=== PATIENT | female | born 1950 | race Caucasian/White ===

== ENCOUNTER → 2020-07-14 12:26 | Outpatient (CLI) | payer SELFPAY, OTHER ==
--- NOTE | 2020-07-14 12:28 | CT_ITS ---
STUDY: CT SCAN OF LOWER EXTREMITY LEFT REASON FOR EXAM: Female, 70 years old. Left knee isai plasty planning, anterior medial pain x 5 months, denies injury. RADIATION DOSAGE (If Supplied By Facility): CTDIvol = ( 18.86 ) mGy, DLP = ( 1149.65 ) mGycm. Individualized dose optimization techniques were used for this CT.? TECHNIQUE: Multiple axial tomographic images of the left hip joint, left knee joint and left ankle joint were obtained. Coronal and sagittal reconstruction was obtained as well. COMPARISON: None. FINDINGS: Imaging of the hip joint demonstrates mild prominence of the greater trochanter of the proximal left femur suggestive of possible changes secondary to bursitis. Imaging of the right knee joint was obtained. There is a mild degree of joint space narrowing involving the medial compartment of the knee joint. There is a 4.9 mm rounded fatty density in the subchondral region of the left femoral condyle suggestive of a small fat-containing bone cyst. There is a mild degree of subchondral sclerosis of the medial femoral condyle and medial tibial plateau. Imaging of the ankle joint was obtained. Tiny cystic changes are seen in the medial aspect of the dome of the talus. CT/Extremity Lower without Contra IMPRESSION: Mild degree of joint space narrowing involving the medial compartment of the knee joint with a 4.9 mm rounded fat density in the subchondral region. Cystic changes seen in the medial aspect of the dome of the ankle joint. Electronically Signed: Yuniel Ndiaye, at 14:56 EST , Service support ,
== END ==
PROVIDERS: PCP Family Medicine; Referring Provider Specialist; Visit Provider Specialist
DX: S72.432A Displaced fracture of medial condyle of left femur, initial encounter for closed fracture (principal)
CPT/HCPCS: 73700

== ENCOUNTER → 2020-11-07 10:11 | Outpatient (CLI) | payer OTHER, SELFPAY ==
[2020-11-07 11:02] LABS: Absolute Neutrophil Count 3.9 X10^3/uL (2.0-7.7); Basophil# 0.03 X10^3/uL; Basophil% 0.5 % (0-1); Eosinophil# 0.08 X10^3/uL; Eosinophils% 1.3 % (0-5); Hematocrit 41.8 % (37-47); Hemoglobin 13.1 g/dL (12.0-15.0); Lymphocyte % 25.9 % (19-41); Mean Corp Hgb Conc 31.3 g/dL (32-36); Mean Corpuscular Volume 92.5 fL (81-99); Mean Platelet Vol. 10.6 fl (6.2-12.0); Monocyte# 0.52 X10^3/uL; Monocyte% 8.4 % (0-10); NRBC Flagged by Analyzer 0 % (0-5); Neutrophil # 3.92 X10^3/uL (2.7-7.7); Neutrophil % 63.6 % (47-70); Platelet Count 302 K/mm3 (150-450); RBC Distribution Width CV 14.2 % (11.6-14.6); RBC Distribution Width SD 47.9 fl (35.1-43.9); Red Blood Count 4.52 M/mm3 (4.2-5.4); White Blood Count 6.2 K/mm3 (4.4-11.0)
[2020-11-07 11:42] LABS: Anion Gap 7 (5-15); BUN 15 mg/dL (7-18); BUN/Creat Ratio 20.4 RATIO (10-20); Calcium,Total 9.4 mg/dL (8.5-10.1); Chloride 105 mmol/L (98-107); Creatinine, Serum 0.74 mg/dL (0.55-1.02); EST Glomerular Filtration Rate 83 mL/min (>60); Est Glom Filt Rate - Afr Amer 100 mL/min (>60); Glucose 82 mg/dL (74-106); Sodium Level 138 mmol/L (136-145)
== END ==
PROVIDERS: PCP Family Medicine; Referring Provider Physician Assistant Surgical; Visit Provider Physician Assistant Surgical
DX: Z01.818 Encounter for other preprocedural examination (principal); E11.9 Type 2 diabetes mellitus without complications
CPT/HCPCS: 36415; 80048; 85025